=== PATIENT | female | born 1935 ===

== ENCOUNTER 2017-02-25 10:54 | Outpatient (CLI) | payer MEDICARE, OTHER | END 2017-02-25 10:55 | disposition home or self-care (01) | LOC: BICRAD 10:54 | PROVIDERS: ATTEND Orthopaedic Surgery Sports Medicine | DX: R06.00 Dyspnea, unspecified (principal); R91.8 Other nonspecific abnormal finding of lung field | CPT/HCPCS: 71046 ==